=== PATIENT | male | born 1990 | race Caucasian/White ===

== ENCOUNTER 2018-05-20 10:48 | Emergency (ER) ==
[2018-05-20 10:58] VITALS: BP 125/75; TEMP 98.4; BMI 27.4
[2018-05-20] MEDS ORDERED: LIDOCAINE HCL 1% SDV SUBCUT STA (11:17)
--- NOTE | 2018-05-20 11:20 | ED.PDOC ---
General ED Provider: Dr. CHERI CASANOVA Chief Complaint: Finger Pain/Injury Stated Complaint: FINGER LACERTION RIGHT INDEX Time Seen by Physician: 11:00 (SEEN WITH MAYKEL CHÁVEZ ) Mode of Arrival: Walk-In Information Source: Patient Exam Limitations: No limitations Nursing and Triage Documentation Reviewed and Agree: Yes Does patient meet sepsis criteria?: Yes If yes, has appropriate treatment been initiated?: No System Inflammatory Response Syndrome: Not Applicable (SEE PHOTOS) Sepsis Protocol: For patient's 13 years and over: Temp is 96.8 and below OR 101 and greater Pulse >90 BPM Resp >20/minute Acutely Altered Mental Status Are patient's symptoms suggestive of a new infection, such as: -Pneumonia -Skin, Soft Tissue -Endocarditis -UTI -Bone, Joint Infection -Implantable Device -Acute Abdominal Infection -Wound Infection -Meningitis -Blood Stream Catheter Infection -Unknown Skin Complaint Exam - Skin/Soft Tissue Complaint/Exam Symptoms Are: Still present Timing: Constant Initial Severity: Mild Current Severity: Mild Character: Denies: Redness, Swelling, Raised, Painful Aggravating: Reports: None Alleviating: Reports: None Associated Signs and Symptoms: Denies: Fever, Chills, Itching, Drainage, Bruising, Tenderness, Red streaks, Joint swelling Related History: Reports: Similar episode Related Surgical History: Reports: None Recent Exposure to Others w/Similar Symptoms: No Skin Findings: Present: Other (LACERATION) Joint Tenderness Present: No Review of Systems - Review Of Systems Constitutional: Reports: No symptoms Eyes: Reports: No symptoms Ears, Nose, Mouth, Throat: Reports: No symptoms Respiratory: Reports: No symptoms Cardiac: Reports: No symptoms GI: Reports: No symptoms : Reports: No symptoms Musculoskeletal: Reports: No symptoms Skin: Reports: No symptoms, Other (LACERATION) Neurological: Reports: No symptoms Endocrine: Reports: No symptoms Hematologic/Lymphatic: Reports: No symptoms All Other Systems: Reviewed and Negative Past Medical History - Past Medical History Previously Healthy: Yes Endocrine: Reports: None Cardiovascular: Reports: None Respiratory: Reports: None Hematological: Reports: None Gastrointestinal: Reports: None Genitourinary: Reports: None Neuro/Psych: Reports: None Musculoskeletal: Reports: None Cancer: Reports: None - Surgical History General Surgical History: Reports: None - Family History Family History: Reports: None - Social History Smoking Status: Never smoker Hx Substance Use: No Alcohol Screening: Occasionally - Immunizations Tetanus Shot up to Date: No Physical Exam - Physical Exam Appearance: Well-appearing, No pain distress, Well-nourished Eyes: ASHLYN, EOMI, Conjunctiva clear ENT: Ears normal, Nose normal, Oropharynx normal Respiratory: Airway patent, Breath sounds clear, Breath sounds equal, Respirations nonlabored Cardiovascular: RRR, Pulses normal, No rub, No murmur GI/: Soft, Nontender, No masses, Bowel sounds normal, No Organomegaly Musculoskeletal: Normal strength, ROM intact, No edema, No calf tenderness Skin: Warm, Dry (1 CM LACERATION RIGHT INDEX SEE PHOTOS), Normal color Neurological: Sensation intact, Motor intact, Reflexes intact, Cranial nerves intact, Alert, Oriented Psychiatric: Affect appropriate, Mood appropriate Procedures - Laceration/Wound Repair No standard instances Wound Description: Linear Wound Length (cm): 1CM Wound Width: 1MM Wound Depth: 1MM Wound Explored: Clean Wound Irrigated: No Wound Prep: Hibiclens Anesthesia: Lidocaine (1 ML) Wound Debrided: Minimal Undermining: Minimal Wound Margins: Revised Wound Repaired With: Sutures Suture Size and Type: 3 PROLENE Number of Sutures: 5 Number of [place]: 0 Layer Closure?: No Sterile Dressing Applied?: No Splint Applied?: No Critical Care Note - Critical Care Note Total Time (mins): 0 Course - Course Orders, Labs, Meds: Orders Category Date Time Status Lidocaine HCl/Pf [Lidocaine HCl 1% Sdv] MEDS 05/20/18 11:17 Stat 5 ml SUBCUT ONCE STA Medications Discontinued Medications Generic Name Dose Route Start Last Admin Trade Name Freq PRN Reason Stop Dose Admin Lidocaine HCl 5 ml 05/20/18 11:17 Lidocaine Hcl 1% Sdv SUBCUT 05/20/18 11:18 ONCE STA Vital Signs: Temp Pulse Resp BP Pulse Ox 05/20/18 10:51 98.4 F 77 16 125/75 98 Departure - Departure Time of Disposition: 11:21 Disposition: HOME SELF-CARE Discharge Problem: Laceration Instructions: Laceration (ED), Care For Your Stitches (ED) Condition: Good Pt referred to PMD for follow-up: Yes IPMP verified?: No Additional Instructions: Please call your Family Physician as soon as possible to schedule a follow-up appointment. Allergies/Adverse Reactions: Allergies amoxicillin trihydrate [From Augmentin] Adverse Reaction (Verified 05/20/18 11: 00) potassium clavulanate [From Augmentin] Adverse Reaction (Verified 05/20/18 11:00 ) Home Medications: Ambulatory Orders 1 [No Reported Medications] 05/20/18 Disposition Discussed With: Patient
[2018-05-20] MEDS ORDERED: BOOSTRIX IM ONE (12:05)
== END 2018-05-20 12:20 | disposition home or self-care (01) ==
LOC: ED 10:48
DX: S61.210A Laceration without foreign body of right index finger without damage to nail, initial encounter (principal); W86.8XXA Exposure to other electric current, initial encounter; Y99.0 Civilian activity done for income or pay
CPT/HCPCS: 90471; 90715; 99282